=== PATIENT | male | born 1955 | race Two or more races ===

== ENCOUNTER 2023-08-23 15:17 | Emergency (ER) | payer MEDICARE, OTHER ==
[~2023-08-23] VITALS: Ht 180.3 cm; Wt 81.8 kg
[2023-08-23 15:55] LABS: Basophils # (auto) 0 10 ^3/uL (0-0.2); Basophils % (auto) 0.2 % (0.0-2.0); Eosinophils # (auto) 0.1 10 ^3/uL (0-0.8); Eosinophils % (auto) 1.1 % (0.0-7.0); Hematocrit 40.1 % (41.0-53.0); Hemoglobin 13.3 g/dL (13.5-17.5); Lymphocytes # (auto) 2.3 10 ^3/uL (0.4-5.4); Lymphocytes % (auto) 20.5 % (10.0-50.0); Mean Corpuscular Hemoglobin 31.2 pg (28.0-32.0); Mean Corpuscular Hgb Conc. 33.2 g/dL (32.0-36.0); Mean Corpuscular Volume 93.9 fL (80.0-100.0); Monocytes # (auto) 1.3 10 ^3/uL (0-1.3); Neutrophils # (auto) 7.3 10 ^3/uL (1.6-8.6); Neutrophils % (auto) 66.2 % (37.0-80.0); Nucleated Red Blood Cells % 0.1 %; Red Blood Cells 4.27 10^6/uL (4.5-5.90)
[2023-08-23 16:10] LABS: INR 1.04 (0.9-1.15); Partial Thromboplastin Time 30.2 SEC (24.5-34.5); Prothrombin Time 10.9 sec (9.3-11.8)
[2023-08-23 16:19] LABS: Alanine Aminotransferase 28 U/L (7-40); Albumin 4.4 g/dL (3.2-4.8); Alkaline Phosphatase 95 U/L (46-116); Anion Gap 6 (5-15); Aspartate Aminotransferase 18 U/L (13-40); BUN/Creatinine Ratio 10.9 (10.0-20.0); Bilirubin, Total 0.5 mg/dL (0.2-1.0); Blood Urea Nitrogen 10 mg/dL (9-23); Carbon Dioxide 28 mmol/L (20-30); Chloride 104 mmol/L (98-107); Glucose 110 mg/dL (74-106); Magnesium 2.1 mg/dL (1.6-2.6); Potassium 3.7 mmol/L (3.5-5.1); Sodium 138 mmol/L (136-145); Total Protein 8.3 g/dL (5.7-8.2)
[2023-08-23 17:30] VITALS: TEMP 97.9
[2023-08-23] MEDS: ASPirin 325 MG TAB PO ONE (21:45)
[2023-08-23] MEDS: ONDANSETRON ODT 4 MG TAB PO ONE (21:45)
[2023-08-23] MEDS: HYDROcodone-ACET 5/325MG TAB PO ONE (21:46)
[2023-08-23] MEDS: IOHEXOL 350 MG/ML 100ML IJ ONE (22:08)
[2023-08-23 23:13] LABS: Urine Bacteria NONE SEEN /hpf (None Seen); Urine Blood 2+ /uL (Negative); Urine Clarity Clear (Clear); Urine Protein, UAD TRACE (Negative); Urine Urobilinogen Normal (Negative); Urine WBC 1 /hpf (0 - 3)
[2023-08-23 23:21] LABS: Urine Color Straw (Yellow); Urine Specific Gravity > 1.050 (1.001-1.035)
[2023-08-23 23:30] VITALS: PULSE 79; RESP 18; O2SAT 95
[2023-08-24 01:00] VITALS: BP 123/74; PULSE 83; RESP 18; O2SAT 95
== END 2023-08-24 01:27 | disposition home or self-care (01) ==
LOC: ER 15:17
DX: R07.89 Other chest pain (principal); Z79.899 Other long term (current) drug therapy
CPT/HCPCS: 36415; 71045; 71275; 80053; 81001; 83735; 83880; 84484; 85025; 85379; 85610; 85730; 93005; 93971; 99285; Q0162; Q9967